=== PATIENT | female | born 1935 | race Caucasian/White ===

== ENCOUNTER 2017-02-04 14:34 | Emergency (ER) | payer OTHER, BC ==
[~2017-02-04] VITALS: Ht 165.1 cm; Wt 87.2 kg
[~2017-02-04 14:34] MED LIST: FUROSEMIDE20 MG PO; GABAPENTIN600 MG PO; LEVOTHYROXINE100 MCG PO; LEVOXYL112 MCG PO; LEVOXYL25 MCG PO; Levaquin PO; METROLOTION59 ML TP; MULTIVITAMIN1 EAC1 PO; OXYCODONE HCL E10 MG PO; OXYCODONE HCL10 MG PO; OXYCODONE HCL5 MG PO; PRAVACHOL10 MG PO; PROAIR HFA8.5 GM IH; VITAMIN D2000 UNIT PO; [UNRECOGNIZED DRUG - OTHER] IM
[2017-02-04 16:02] LABS: HEMATOCRIT 41.6 % (36.0-46.0); MCH 26.7 PG (29.0-34.0); MCHC 32.7 G/DL (30.0-36.0); MCV 81.6 FL (83-99); MEAN PLAT.VOLUME 11.1 uM^3 (9.5-12.4); PLATELET COUNT 210 K/uL (156-360); RBC DIS.WIDTH-CV 12.9 % (11.8-14.6); RBC DIS.WIDTH-SD 38.4 % (39-53); WHITE BLOOD COUNT 10.1 K/uL (4.1-10.2)
[2017-02-04 16:12] LABS: CHLORIDE 102 mEq/L (99-109); POTASSIUM 4.4 mEq/L (3.7-5.4); SODIUM 140 mEq/L (136-147)
[2017-02-04 16:14] LABS: GLUCOSE 111 mg/dL (70-99)
[2017-02-04 16:15] LABS: ANION GAP 14 MEQ/L (2-14)
[2017-02-04 16:16] LABS: TOTAL BILIRUBIN 0.6 mg/dL (0.0-1.0)
[2017-02-04 16:17] LABS: ALKALINE PHOSPHATASE 71 IU/L (3-129)
[2017-02-04 16:18] LABS: GFR ESTIMATE (CALCULATED) 42 mL/min/
[2017-02-04 16:19] LABS: UREA NITROGEN (BUN) 16 mg/dL (9-23)
[2017-02-04 16:21] LABS: LIPASE 18 U/L (1.0-51.0)
[2017-02-04 16:59] LABS: ADD MIUA? NO; BILIRUBIN NEGATIVE; BLOOD NEGATIVE; COLOR AMBER ((YELLOW)); GLUCOSE (STRIP) NEGATIVE; KETONES 20; LEUKOCYTES NEGATIVE; NITRITE NEGATIVE; PROTEIN (STRIP) NEGATIVE; SPECIFIC GRAVITY 1.012 (1.000-1.030); UROBILINOGEN 0.2 MG/DL (0.2-1.0)
[2017-02-04 19:25] VITALS: BP 147/64
[2017-02-04] MEDS ORDERED: ZOFRAN ODT4 MG PO (20:02)
[2017-02-04] MEDS ORDERED: BENTYL20 MG PO (20:02)
== END 2017-02-04 20:30 | disposition home or self-care (01) ==
LOC: EME 14:34
PROVIDERS: Nurse Practitioner Family
DX: K83.8 Other specified diseases of biliary tract (principal); R11.2 Nausea with vomiting, unspecified; R10.9 Unspecified abdominal pain; M41.9 Scoliosis, unspecified; E05.90 Thyrotoxicosis, unspecified without thyrotoxic crisis or storm; E78.5 Hyperlipidemia, unspecified; Z87.440 Personal history of urinary (tract) infections; Z88.2 Allergy status to sulfonamides; Z90.710 Acquired absence of both cervix and uterus
CPT/HCPCS: 74176; 80053; 81003; 83690; 85027; 93005; 99281; 99285; J2270; J2405; J3010; J7040